=== PATIENT | female | born 1970 | race African-American/Black ===

== ENCOUNTER → 2016-06-10 | Outpatient (CLI) | payer BC ==
[2016-01-27 17:22] VITALS: BP 139/81
--- NOTE | 2016-06-10 11:34 | VAS ---
HISTORY: Right leg osteoarthritis Study: Venous Doppler Comparison: None TECHNIQUE: Multiple chanel scale and color flow Doppler images of the deep venous system were obtaine d of the Right lower extremity. FINDINGS: There is normal respiratory phasicity, compression and augmentation of the lower extremity veins wit hout evidence of acute DVT. IMPRESSION: 1. Negative for DVT. Reported By:
== END ==
LOC: RAD 10:50
PROVIDERS: ATTEND Specialist
DX: M17.11 Unilateral primary osteoarthritis, right knee (principal); M79.89 Other specified soft tissue disorders
CPT/HCPCS: 93971